=== PATIENT | male | born 2000 | race Caucasian/White ===

== ENCOUNTER → 2023-03-14 | Outpatient (CLI) | payer OTHER ==
[2023-03-14 18:55] LABS: Basophils # (A) 0.02 X 10*3/uL (0.00-0.10); Basophils % (A) 0.2 %; Eosinophils # (A) 0.04 X 10*3/uL (0.04-0.35); Eosinophils % (A) 0.5 %; HCT 45.4 % (39.6-50.0); HGB 15.1 g/dL (13.0-17.0); Lymphocytes # (A) 1.89 X 10*3/uL (0.90-5.00); Lymphocytes % (A) 22.6 %; MCH 31.3 pg (27.0-32.0); MCHC 33.3 g/dL (32.0-37.0); MCV 94.2 FL (80.0-97.0); Mean Platelet Volume 9.8 FL (9.5-12.2); Monocytes # (A) 0.67 X 10*3/uL (0.20-1.00); NRBC Per 100 WBC 0 X 10*3/uL (0.00-0.01); Neutrophils # (A) 5.69 X 10*3/uL (1.80-7.70); Platelet Count 261 X 10*3/uL (140-440); RBC 4.82 X 10*6/uL (4.40-5.60); RDW 12.2 % (11.5-14.5); WBC 8.37 X 10*3/uL (4.50-10.00)
[2023-03-14 19:08] LABS: Erythrocyte Sedimentation Rate 3 mm/Hr (0-15)
[2023-03-14 19:18] LABS: BUN/Creat Ratio 12.89 Ratio (12.00-20.00); Blood Urea Nitrogen 11.6 mg/dL (9.0-27.0); Chloride 104 mmol/L (96-109); Glucose 90 mg/dL (70-110); Potassium 4.1 mmol/L (3.5-5.5); Sodium 143 mmol/L (135-145)
[2023-03-14 19:19] LABS: ALT 25 U/L (10-49); AST 20 U/L (14-35); Albumin 4.5 g/dL (3.8-4.9); Albumin/Globulin Ratio 2.05 Ratio (1.60-3.17); Alkaline Phosphatase 69 U/L (41-126); C Reactive Protein <0.30 mg/dL (0.00-0.80); Calcium 10.1 mg/dL (8.7-10.3); Carbon Dioxide 28.3 mmol/L (21.6-31.8); Globulin 2.2 g/dL (1.6-3.3); Total Bilirubin 0.4 mg/dL (0.3-1.2); Total Protein 6.7 g/dL (6.2-8.2)
== END | disposition home or self-care (01) ==
LOC: LABWHC1 11:40
PROVIDERS: ATTEND Internal Medicine
DX: B20 Human immunodeficiency virus [HIV] disease (principal)
CPT/HCPCS: 36415; 80053; 84443; 85025; 85652; 86038; 86140; 86160

== ENCOUNTER 2023-03-17 11:28 | Emergency (ER) | payer OTHER ==
--- NOTE | 2023-03-17 12:13 | ED ---
Headache HPI - General Chief Complaint: Headache Stated Complaint: cough headache hives Time Seen by Provider: 03/17/23 11:59 Source: patient, family, RN notes reviewed Mode of arrival: ambulatory Limitations: no limitations - History of Present Illness Initial Comments: Patient is a 22-year-old male presenting the ER with a chief complaint of headache. Patient states that his headache started last night he has also been experiencing a dry cough and chills. Patient states that his headache started randomly. He also reports he has been experiencing full body hives since January. Patient states they come and go with no known triggers. He reports he does also feel a burning sensation in his throat when the hives occur. Denies new soaps, lotions, foods, stresses. He has been worked up by an assistant community manager and has an appointment with a rosin barrel filler soon. Patient denies any double or blurry vision, nausea, vomiting, abdominal pain, constipation/diarrhea, peripheral edema, chest pain, shortness of breath. - Related Data Allergies Allergy/AdvReac Type Severity Reaction Status Date / Time No Known Allergies Allergy Verified 03/17/23 11:54 Review of Systems ROS Statement: Those systems with pertinent positive or pertinent negative responses have been documented in the HPI. ROS Other: All systems not noted in ROS Statement are negative. Past Medical History History of Any Multi-Drug Resistant Organisms: None Reported Past Surgical History: Appendectomy, Tonsillectomy Past Psychological History: No Psychological Hx Reported Smoking Status: Vaper Past Alcohol Use History: Occasional Past Drug Use History: None Reported General Exam Limitations: no limitations General appearance: alert, in no apparent distress Head exam: Present: atraumatic, normocephalic, normal inspection Eye exam: Present: normal appearance, PERRL, EOMI. Absent: scleral icterus, conjunctival injection, periorbital swelling Pupils: Present: normal accommodation ENT exam: Present: normal exam, normal oropharynx, mucous membranes moist, TM's normal bilaterally Neck exam: Present: normal inspection. Absent: tenderness, meningismus, lymphadenopathy Respiratory exam: Present: normal lung sounds bilaterally. Absent: respiratory distress, wheezes, rales, rhonchi, stridor Cardiovascular Exam: Present: regular rate, normal rhythm, normal heart sounds. Absent: systolic murmur, diastolic murmur, rubs, gallop, clicks GI/Abdominal exam: Present: soft, normal bowel sounds. Absent: distended, tenderness, guarding, rebound, rigid Neurological exam: Present: alert, oriented X3, CN II-XII intact Psychiatric exam: Present: normal affect, normal mood Skin exam: Present: warm, dry, intact, normal color, other (mild uticara on bilateral legs and arms.). Absent: rash Course Vital Signs 03/17/23 03/17/23 11:47 13:39 Temperature 98.5 F 99.6 F Pulse Rate 111 H 84 Respiratory 20 20 Rate Blood Pressure 112/56 112/63 O2 Sat by Pulse 99 99 Oximetry Medical Decision Making - Medical Decision Making Was pt. sent in by a medical professional or institution (, PA, DIRECTOR CLIENT SERVICES, urgent care, hospital, or usp...) When possible be specific @ -No Did you speak to anyone other than the patient for history (EMS, parent, family, police, friend...)? What history was obtained from this source @ -No Did you review nursing and triage notes (agree or disagree)? Why? @ -I reviewed and agree with nursing and triage notes Were old charts reviewed (outside hosp., previous admission, EMS record, old EKG, old radiological studies, urgent care reports/EKG's, usp records)? Report findings @ -No old charts were reviewed Differential Diagnosis (chest pain, altered mental status, abdominal pain women, abdominal pain men, vaginal bleeding, weakness, fever, dyspnea, syncope, headache, dizziness, GI bleed, back pain, seizure, CVA, palpatations, mental health, musculoskeletal)? @ -Differential Headache: Migraine, tension, cluster, carbon monoxide, central venous thrombosis, pension karma temporal arteritis, acute closure glaucoma, intercranial hemorrhage, mastoiditis, sinusitis, head injury, this is not meant to be an all-inclusive list. EKG interpreted by me (3pts min.). @ -None X-rays interpreted by me (1pt min.). @ -Chest x-ray interpreted by me shows no acute process. CT interpreted by me (1pt min.). @ -None done U/S interpreted by me (1pt. min.). @ -None done What testing was considered but not performed or refused? (CT, X-rays, U/S, labs)? Why? @ -None What meds were considered but not given or refused? Why? @ -None Did you discuss the management of the patient with other professionals (professionals i.e. , PA, DIRECTOR CLIENT SERVICES, lab, RT, psych nurse, child protective services social worker, die maker bench stamping, teacher, asset protection officer, continuous pillowcase cutter)? Give summary @ -No Was smoking cessation discussed for >3mins.? @ -No Was critical care preformed (if so, how long)? @ -No Were there social determinants of health that impacted care today? How? (Homelessness, low income, unemployed, alcoholism, drug addiction, transportation, low edu. Level, literacy, decrease access to med. care, alf, rehab)? @ -No Was there de-escalation of care discussed even if they declined (Discuss DNR or withdrawal of care, Hospice)? DNR status @ -No What co-morbidities impacted this encounter? (DM, HTN, Smoking, COPD, CAD, Cancer, CVA, ARF, Chemo, Hep., AIDS, mental health diagnosis, sleep apnea, morbid obesity)? @ -None Was patient admitted / discharged? Hospital course, mention meds given and route, prescriptions, significant lab abnormalities, going to OR and other pertinent info. @ -Discharge. He is a 22-year-old male presented ER with chief complaint of a headache and cough. Patient was tachycardic at 111bpm, vitals otherwise stable. History and physical exam were completed. No signs of acute distress. Influenza A positive. COVID, RSV negative. Chest x-ray interpreted by me negative for acute process. Patient received PO tylenol for symptom control. Lab and imaging findings were discussed with patient. I advised patient to use OTC tylenol and motrin for fever and symptom control. Return parameters were discussed. I aslo discussed with patient to follow-up with rosin barrel filler as scheduled for rash. Patient will be discharged in stable condition with follow-up to PCP. Patient expressed understanding and agreement with care plan. Undiagnosed new problem with uncertain prognosis? @ -No Drug Therapy requiring intensive monitoring for toxicity (Heparin, Nitro, Insulin, Cardizem)? @ -No Were any procedures done? @ -No Diagnosis/symptom? @ -Influenza A Acute, or Chronic, or Acute on Chronic? @ -Acute Uncomplicated (without systemic symptoms) or Complicated (systemic symptoms)? @ -Uncomplicated Side effects of treatment? @ -No Exacerbation, Progression, or Severe Exacerbation? @ -No Poses a threat to life or bodily function? How? (Chest pain, [place], [place], pneumonia, PE, COPD, DKA, ARF, appy, cholecystitis, CVA, Diverticulitis, Homicidal, Suicidal, threat to staff... and all critical care pts) @ -No - Lab Data Lab Results 03/17/23 Range/Units 12:31 Influenza Type A (PCR) Detected A (Not Detectd) Influenza Type B (PCR) Not Detected (Not Detectd) RSV (PCR) Not Detected (Not Detectd) SARS-CoV-2 (PCR) Not Detected (Not Detectd) - Radiology Data Radiology results: report reviewed, image reviewed Disposition Clinical Impression: Influenza A Disposition: HOME SELF-CARE Condition: Stable Instructions (If sedation given, give patient instructions): Influenza (ED) Additional Instructions: PLease use OTC tylenol and motrin for fever and symptom control. Follow-up with PCP. Return to ER for any new or worsening symptoms. Is patient prescribed a controlled substance at d/c from ED?: No Referrals: None,Stated [Primary Care Provider] - 1-2 days Time of Disposition: 13:47
--- NOTE | 2023-03-17 13:01 | XR ---
EXAMINATION TYPE: XR chest 2V DATE OF EXAM: 03/17/2023 COMPARISON: NONE HISTORY: Cough TECHNIQUE: Frontal and lateral views of the chest are obtained. FINDINGS: There is no focal air space opacity, pleural effusion, or pneumothorax seen. The cardiac silhouette size is within normal limits. The osseous structures are intact. IMPRESSION: No acute cardiopulmonary process.
[2023-03-17] MEDS ORDERED: ACETAMINOPHEN TAB 325 MG TAB PO STA (13:30)
[2023-03-17 13:55] VITALS: TEMP 99.6
[2023-03-17 14:17] VITALS: BP 110/68; PULSE 90; RESP 16
== END 2023-03-17 14:05 | disposition home or self-care (01) ==
LOC: EC 11:28
DX: J10.1 Influenza due to other identified influenza virus with other respiratory manifestations (principal); L50.9 Urticaria, unspecified; R00.0 Tachycardia, unspecified; F17.290 Nicotine dependence, other tobacco product, uncomplicated; Z20.822 Contact with and (suspected) exposure to COVID-19
CPT/HCPCS: 71046; 87636; 99284

== ENCOUNTER 2023-03-17 23:55 | Emergency (ER) | payer OTHER ==
[2023-03-18] MEDS ORDERED: DEXAMETHASONE SOD PHOSPHATE 10 MG/ML 1 ML VIAL IM STA (00:09)
[2023-03-18] MEDS ORDERED: FAMOTIDINE 20 MG TAB PO STA (00:10)
--- NOTE | 2023-03-18 00:55 | ED ---
General Adult HPI - General Chief complaint: Allergic Reaction Stated complaint: BETTY, facial swelling Time Seen by Provider: 03/18/23 00:03 Source: patient Mode of arrival: ambulatory Limitations: no limitations - History of Present Illness Initial comments: Dictation was produced using [employer] ([employer]) dictation software. please excuse any grammatical, word or spelling errors. Chief Complaint: 22-year-old male presents to the ER for hives History of Present Illness: 2-year-old male who presents emergency department for urticaria. He is been having urticaria daily since February 17. He seen an recovery advocate had some blood tests. Patient had another episode. States that he started feeling he was having some symptoms in his throat. Denies any obvious allergen exposure. Significant other at the bedside states that patient's voiced did sound a little different and lower in tone. Patient has no nausea, vomiting or abdominal pain The ROS documented in this emergency department record has been reviewed and confirmed by me. Those systems with pertinent positive or negative responses have been documented in the HPI. All other systems are other negative and/or noncontributory. - Related Data Previous Rx's Medication Instructions Recorded dexAMETHasone [Decadron] 12 mg PO ONCE #2 tab 03/18/23 Allergies Allergy/AdvReac Type Severity Reaction Status Date / Time No Known Allergies Allergy Verified 03/17/23 11:54 Review of Systems ROS Statement: Those systems with pertinent positive or pertinent negative responses have been documented in the HPI. ROS Other: All systems not noted in ROS Statement are negative. Past Medical History Past Medical History: No Reported History History of Any Multi-Drug Resistant Organisms: None Reported Past Surgical History: Appendectomy, Tonsillectomy Past Psychological History: No Psychological Hx Reported Smoking Status: Vaper Past Alcohol Use History: Occasional Past Drug Use History: None Reported General Exam - General Exam Comments Initial Comments: PHYSICAL EXAM: General Impression: Alert and oriented x3, not in acute distress HEENT: Normocephalic atraumatic, extra-ocular movements intact, pupils equal and reactive to light bilaterally, mucous membranes moist. Cardiovascular: Heart regular rate and rhythm Chest: Able to complete full sentences, no retractions, no tachypnea Abdomen: abdomen soft, non-tender, non-distended, no organomegaly Musculoskeletal: Pulses present and equal in all extremities, no peripheral edema Motor: no focal deficits noted Neurological: CN II-XII grossly intact, no focal motor or sensory deficits noted Skin: Diffuse urticaria involving the face, arms, trunk and legs Psych: Normal affect and mood Limitations: no limitations Course Vital Signs 03/17/23 23:56 Temperature 98.3 F Pulse Rate 94 Respiratory 20 Rate Blood Pressure 103/71 O2 Sat by Pulse 99 Oximetry Medical Decision Making - Medical Decision Making Was pt. sent in by a medical professional or institution (, VERENICE, TRAINING INTERN, urgent care, hospital, or longterm...) When possible be specific @ -No Did you speak to anyone other than the patient for history (EMS, parent, family, police, friend...)? What history was obtained from this source @ -No Did you review nursing and triage notes (agree or disagree)? Why? @ -I reviewed and agree with nursing and triage notes Were old charts reviewed (outside hosp., previous admission, EMS record, old EKG, old radiological studies, urgent care reports/EKG's, longterm records)? Report findings @ -No old charts were reviewed Differential Diagnosis (chest pain, altered mental status, abdominal pain women, abdominal pain men, vaginal bleeding, musculoskeletal, weakness, fever, dyspnea, syncope, headache, dizziness, GI bleed, back pain, seizure, CVA, palpatations, mental health)? @ -not applicable EKG interpreted by me (3pts min.). @ -None done X-rays interpreted by me (1pt min.). @ -None done CT interpreted by me (1pt min.). @ -None done U/S interpreted by me (1pt. min.). @ -None done What testing was considered but not performed or refused? (CT, X-rays, U/S, labs)? Why? @ -None What meds were considered but not given or refused? Why? @ -None Did you discuss the management of the patient with other professionals (professionals i.e. VERENICE Acuña, TRAINING INTERN, lab, RT, psych nurse, social security assessor, stem dryer maintainer, teacher, disability liaison officer, disease case manager rn)? Give summary @ -No Was smoking cessation discussed for >3mins.? @ -No Was critical care preformed (if so, how long)? @ -No Were there social determinants of health that impacted care today? How? (Homelessness, low income, unemployed, alcoholism, drug addiction, transportation, low edu. Level, literacy, decrease access to med. care, senior living, rehab)? @ -No Was there de-escalation of care discussed even if they declined (Discuss DNR or withdrawal of care, Hospice)? DNR status @ -No What co-morbidities impacted this encounter? (DM, HTN, Smoking, COPD, CAD, Cancer, CVA, ARF, Chemo, Hep., AIDS, mental health diagnosis, sleep apnea, morbid obesity)? @ -None Was patient admitted / discharged? Hospital course, mention meds given and route, prescriptions, significant lab abnormalities, going to OR and other pertinent info. @ -22-year-old male presents to the ER for hives. Vital signs stable. Patient does not meet criteria for anaphylaxis. Patient given Decadron and Pepcid. He had taken some Benadryl prior to arrival. Patient reevaluated after several minutes with complete resolution of hives symptoms. Patient discharged she has an appointment with his fish hatchery worker soon. Cautions discussed. Patient agreeable for discharge Undiagnosed new problem with uncertain prognosis? @ -No Drug Therapy requiring intensive monitoring for toxicity (Heparin, Nitro, Insulin, Cardizem)? @ -No Were any procedures done? @ -No Diagnosis/symptom? Acute, or Chronic, or Acute on Chronic? Uncomplicated (without systemic symptoms) or Complicated (systemic symptoms)? @ -Urticaria Side effects of treatment? @ -No Exacerbation, Progression, or Severe Exacerbation? @ -No Poses a threat to life or bodily function? How? (Chest pain, [place], [place], pneumonia, PE, COPD, DKA, ARF, appy, cholecystitis, CVA, Diverticulitis, Homicidal, Suicidal, threat to staff... and all critical care pts) @ -No Disposition Clinical Impression: Hives Disposition: HOME SELF-CARE Condition: Good Instructions (If sedation given, give patient instructions): Urticaria (ED) Prescriptions: dexAMETHasone [Decadron] 12 mg PO ONCE #2 tab Is patient prescribed a controlled substance at d/c from ED?: No Referrals: None,Stated [Primary Care Provider] - 1-2 days Time of Disposition: 02:20
[2023-03-18 02:47] VITALS: BP 115/77; PULSE 58; RESP 18; TEMP 97.9
== END 2023-03-18 02:29 | disposition home or self-care (01) ==
LOC: EC 23:55
DX: L50.0 Allergic urticaria (principal); F17.290 Nicotine dependence, other tobacco product, uncomplicated
CPT/HCPCS: 99284; 96372; J1100